=== PATIENT | female | born 1965 | race Caucasian/White ===

== ENCOUNTER 2016-05-06 08:42 | Emergency (ER) | payer BC ==
--- NOTE | 2016-05-06 12:28 | ED ORDER SUMMARY ---
..... Patient: ROCHELLE BRIGGS OrderSheet [facility] VisitID: [id number] [place] [address] 50y, F Registration Date/Time: 05/06/2016 ORDER SHEET Weight: 86.1 kg (stated) Allergies: No Known Drug Allergy GENERAL ORDERS: CBC w Diff Urgent (09:38 05/06/2016 Tomas Sharma) (Ack 9:46 LNations ER Tech1) (10:38 SBalde R.N.) CMP Urgent (09:38 05/06/2016 Tomas Sharma) (Ack 9:46 LNations ER Tech1) (10:38 SBalde R.N.) UA-Culture if indicated Urgent (09:05/06/2016 Tomas Sharma) (Ack 9:46 LNations ER Tech1) (10:38 SBalde R.N.) Urine Urgent (09:38 05/06/2016 Tomas Sharma) (Ack 9:46 LNations ER Tech1) (10:38 SBalde R.N.) MEDICATION ORDERS: Clonidine PO 0.2 mg (NOW) (09:37 05/06/2016 Tomas Sharma) (10:40 Charis R.N.) Acetaminophen PO 1,000 mg (NOW) (11:55 05/06/2016 Tomas Sharma) (12:22 Charis R.N.) IV FLUIDS: ORDER SHEET NOTES: [Electronically signed by Jasbir Camp Dr. (12:09 05/06/2016)] [Electronically signed by Tania Eng R.N. (15:54 05/06/2016)] [Electronically locked/signed by Tania Eng R.N. (15:54 05/06/2016)]
--- NOTE | 2016-05-06 12:28 | ED NURSING NOTES ---
Clinical Report - Nurses Formerly [facility] [address] [place] [address] 05/06/2016 8:44 Patient: ROCHELLE BRIGGS [facility]#: [id number] TRIAGE Triage time 09:09 May 06 2016. Acuity: LEVEL 3. Chief Complaint: HEADACHE. Alert. No acute distress. ESTELA COMA SCORE: Estela Coma Scale: 15- eyes open spontaneously (4); best verbal response- oriented x 4 (5); best motor response- obeys commands (6). --09:15 Tania Eng R.N. 09:09 05/06/16. BP: 185/82. HR: 73. RR: 18. O2 saturation: 98%. Temp: 97.8 F. --09:15 Tania Eng R.N. Weight: 86.1 kg stated. Height/Length: 61 inches Per Patient. BMI: 35.9. --09:08 Tania Eng R.N. Medications Acid Expeller Operator Oral. --09:13 Tania Eng R.N. Allergy Oral. --09:14 Tania Eng R.N. Medication/allergy information source: the patient. --09:15 Tania Eng R.N. Allergies No Known Drug Allergy. --09:13 Tania Eng R.N. History Arrived by private vehicle. Historian: patient. Accompanied by friend. Primary physician (none). ( Pt states headache for 2 weeks, taking Ibuprofen PRN for it, Checked BP randomly at a family members house and was told it was high.). This started 2 weeks. Patient was last known well (2 weeks ago). Treatment ATTACHER: Took ibuprofen. PAST MEDICAL HX: No history of diabetes mellitus or hypertension. Last normal menstrual period- just finished. Was 2 weeks of a period. Denies current . Has not received seasonal influenza immunization. SOCIAL HX: Heavy tobacco smoker- 1 pack per day. Occasional alcohol use. No drug use. No recent travel. No infectious disease exposure. No known contact with a sick individual. FALL RISK ASSESSMENT: Fall risk assessment completed. No fall risk identified. NUTRITIONAL RISK ASSESSMENT: The nutritional risk assessment revealed no deficiencies. FUNCTIONAL ASSESSMENT: Functional assessment: no impairments noted. LEARNING NEEDS ASSESSMENT: The learning needs assessment revealed no barriers. SKIN INTEGRITY ASSESSMENT: Skin integrity risk assessment completed. No skin integrity risk identified. --09:15 Tania Eng R.N. PROBLEMS: GERD. --09:14 Tania Eng R.N. ADDITIONAL SURGERIES: . Cyst removed from Ankle. Hand Sx. --09:14 Tania Eng R.N. Interventions ID band on patient. To room. --09:15 Tania Eng R.N. PHYSICAL ASSESSMENT Ambulatory to room. GENERAL / NEURO / PSYCH: Oriented X 4. Appears in no acute distress. Speech within normal limits. HEENT: Pupils equal, round and reactive to light. RESPIRATORY: Respirations not labored. CVS: Capillary refill less than 2 seconds. SKIN: Skin is warm and dry. --11:15 Tania Eng R.N. NURSING PROGRESS NOTES Patient ready for evaluation- ED physician notified. --09:15 Tania Eng R.N. 10:40 05/06/2016 Clonidine PO 0.2 mg given. Allergies verified and confirmed 5 rights. --10:40 Tania Eng R.N. 10:44 05/06/16. BP: 190/84. --10:44 Tania Eng R.N. ( Lab was called, blood drawn by Flower Shop Manager.). --11:14 Tania Eng R.N. 11:50 05/06/16. BP: 158/72. --11:50 Tania Eng R.N. ( Pt states she still has a headache.). --11:50 Tania Eng R.N. 11:50 05/06/16. Pain level now 7/10. --11:50 Tania Eng R.N. Patient waiting for evaluation and disposition. --11:51 Tania Eng R.N. 12:22 05/06/2016 Acetaminophen (APAP) PO 1000 mg given. Allergies verified and confirmed 5 rights. --12:22 Tania Eng R.N. DISPOSITION / DISCHARGE Condition at departure: stable. No learning barriers present. Discharge instructions provided and reviewed with the patient. Reviewed medication(s) side effects, precautions, dosing and course information. Prescription(s) given to the patient. Reviewed referral to family practice for followup. Patient verbalized understanding. Written instructions provided in Kazakh. The patient was discharged home and accompanied by secondary school teacher librarian. She left the Emergency Department ambulatory and via private vehicle. Teachers' Assistant driving. Medication list reviewed and validated. --12:28 Sona Ballesteros R.N. 12:23 05/06/16. BP: 155/75. HR: 80. RR: 16. O2 saturation: 98%. Pain level now 0/10. --12:28 Sona Ballesteros R.N. Departure time: 12:28. --12:28 Sona Ballesteros R.N. Locked/Released at 05/06/2016 15:54 by Tania Eng R.N.
--- NOTE | 2016-05-06 12:28 | ED NURSING NOTES ---
Clinical Report - Nurses [facility] [address] [place] [address] 05/06/2016 8:44 Patient: ROCHELLE BRIGGS [facility]#: [id number] TRIAGE Triage time 09:09 May 06 2016. Acuity: LEVEL 3. Chief Complaint: HEADACHE. Alert. No acute distress. ESTELA COMA SCORE: Estela Coma Scale: 15- eyes open spontaneously (4); best verbal response- oriented x 4 (5); best motor response- obeys commands (6). --09:15 Tania Eng R.N. 09:09 05/06/16. BP: 185/82. HR: 73. RR: 18. O2 saturation: 98%. Temp: 97.8 F. --09:15 Tania Eng R.N. Weight: 86.1 kg stated. Height/Length: 61 inches Per Patient. BMI: 35.9. --09:08 Tania Eng R.N. Medications Acid Process Controls Technician Oral. --09:13 Tania Eng R.N. Allergy Oral. --09:14 Tania Eng R.N. Medication/allergy information source: the patient. --09:15 Tania Eng R.N. Allergies No Known Drug Allergy. --09:13 Tania Eng R.N. History Arrived by private vehicle. Historian: patient. Accompanied by friend. Primary physician (none). ( Pt states headache for 2 weeks, taking Ibuprofen PRN for it, Checked BP randomly at a family members house and was told it was high.). This started 2 weeks. Patient was last known well (2 weeks ago). Treatment FINANCIAL REP: Took ibuprofen. PAST MEDICAL HX: No history of diabetes mellitus or hypertension. Last normal menstrual period- just finished. Was 2 weeks of a period. Denies current . Has not received seasonal influenza immunization. SOCIAL HX: Heavy tobacco smoker- 1 pack per day. Occasional alcohol use. No drug use. No recent travel. No infectious disease exposure. No known contact with a sick individual. FALL RISK ASSESSMENT: Fall risk assessment completed. No fall risk identified. NUTRITIONAL RISK ASSESSMENT: The nutritional risk assessment revealed no deficiencies. FUNCTIONAL ASSESSMENT: Functional assessment: no impairments noted. LEARNING NEEDS ASSESSMENT: The learning needs assessment revealed no barriers. SKIN INTEGRITY ASSESSMENT: Skin integrity risk assessment completed. No skin integrity risk identified. --09:15 Tania Eng R.N. PROBLEMS: GERD. --09:14 Tania Eng R.N. ADDITIONAL SURGERIES: . Cyst removed from Ankle. Hand Sx. --09:14 Tania Eng R.N. Interventions ID band on patient. To room. --09:15 Tania Eng R.N. PHYSICAL ASSESSMENT Ambulatory to room. GENERAL / NEURO / PSYCH: Oriented X 4. Appears in no acute distress. Speech within normal limits. HEENT: Pupils equal, round and reactive to light. RESPIRATORY: Respirations not labored. CVS: Capillary refill less than 2 seconds. SKIN: Skin is warm and dry. --11:15 Tania Eng R.N. NURSING PROGRESS NOTES Patient ready for evaluation- ED physician notified. --09:15 Tania Eng R.N. 10:40 05/06/2016 Clonidine PO 0.2 mg given. Allergies verified and confirmed 5 rights. --10:40 Tania Eng R.N. 10:44 05/06/16. BP: 190/84. --10:44 Tania Eng R.N. ( Lab was called, blood drawn by Merchandise Planner.). --11:14 Tania Eng R.N. 11:50 05/06/16. BP: 158/72. --11:50 Tania Eng R.N. ( Pt states she still has a headache.). --11:50 Tania Eng R.N. 11:50 05/06/16. Pain level now 7/10. --11:50 Tania Eng R.N. Patient waiting for evaluation and disposition. --11:51 Tania Eng R.N. 12:22 05/06/2016 Acetaminophen (APAP) PO 1000 mg given. Allergies verified and confirmed 5 rights. --12:22 Tania Eng R.N. DISPOSITION / DISCHARGE Condition at departure: stable. No learning barriers present. Discharge instructions provided and reviewed with the patient. Reviewed medication(s) side effects, precautions, dosing and course information. Prescription(s) given to the patient. Reviewed referral to family practice for followup. Patient verbalized understanding. Written instructions provided in Latvian. The patient was discharged home and accompanied by group dynamics instructor. She left the Emergency Department ambulatory and via private vehicle. Bartacker driving. Medication list reviewed and validated. --12:28 Sona Ballesteros R.N. 12:23 05/06/16. BP: 155/75. HR: 80. RR: 16. O2 saturation: 98%. Pain level now 0/10. --12:28 Sona Ballesteros R.N. Departure time: 12:28. --12:28 Sona Ballesteros R.N. Locked/Released at 05/06/2016 15:54 by Tania Eng R.N.
--- NOTE | 2016-05-06 12:28 | ED ORDER SUMMARY ---
..... Patient: ROCHELLE BRIGGS OrderSheet [facility] VisitID: [id number] [place] [address] 50y, F Registration Date/Time: 05/06/2016 ORDER SHEET Weight: 86.1 kg (stated) Allergies: No Known Drug Allergy GENERAL ORDERS: CBC w Diff Urgent (09:38 05/06/2016 Tomas Sharma) (Ack 9:46 LNations ER Tech1) (10:38 SBalde R.N.) CMP Urgent (09:38 05/06/2016 Tomas Sharma) (Ack 9:46 LNations ER Tech1) (10:38 SBalde R.N.) UA-Culture if indicated Urgent (09:05/06/2016 Tomas Sharma) (Ack 9:46 LNations ER Tech1) (10:38 SBalde R.N.) Urine Urgent (09:38 05/06/2016 Tomas Sharma) (Ack 9:46 LNations ER Tech1) (10:38 SBalde R.N.) MEDICATION ORDERS: Clonidine PO 0.2 mg (NOW) (09:37 05/06/2016 Tomas Sharma) (10:40 Charis R.N.) Acetaminophen PO 1,000 mg (NOW) (11:55 05/06/2016 Tomas Sharma) (12:22 Charis R.N.) IV FLUIDS: ORDER SHEET NOTES: [Electronically signed by Jasbir Camp Dr. (12:09 05/06/2016)] [Electronically signed by Tania Eng R.N. (15:54 05/06/2016)] [Electronically locked/signed by Tania Eng R.N. (15:54 05/06/2016)]
--- NOTE | 2016-05-06 12:28 | ED CLINICAL REPORT ---
Clinical Report - Physicians/Mid Levels [facility] [address] [place] [address] 05/06/2016 8:44 Patient: ROCHELLE BRIGGS Time Seen: 09:05; initial patient contact. Arrived- By private vehicle. Historian- patient. HISTORY OF PRESENT ILLNESS Chief Complaint: BLOOD PRESSURE ELEVATED. Checked by patient at home. This started about 1 week ago and is still present. At its maximum, severity described as moderate. When seen in the E.D., severity described as moderate. Modifying factors. Not worsened by anything. Not relieved by anything. The patient has had a headache. No visual disturbance or fatigue. Similar symptoms previously: None. Recent medical care: Not recently seen/assessed. REVIEW OF SYSTEMS No fever, difficulty breathing, chest pain, nausea or vomiting. No difficulty with urination, blackouts or double vision. She has had a headache. No difficulty with ambulation. All systems otherwise negative, except as recorded above. PAST HISTORY GERD. SURGERIES: . Cyst removed from Ankle. Hand Sx. Medications: Allergy Oral. Acid Client Customer Manager Oral. Allergies: No Known Drug Allergy. SOCIAL HISTORY Current every day smoker. ADDITIONAL NOTES The nursing notes have been reviewed with agreement regarding the chief complaint, PMH and patient medications and allergies. PHYSICAL EXAM Vital Signs: 05/06/2016 09:09 BP: 185/82. HR: 73. RR: 18. O2 saturation: 98%. Temp: 97.8 F. Have been reviewed. Hypertensive. Heart rate normal. Respiratory rate normal. Temperature normal. Oxygen saturation normal. Appearance: Alert. No acute distress. Eyes: Pupils equal, round and reactive to light. Eyes normal inspection. ENT: Pharynx normal. CVS: Normal heart rate and rhythm. Heart sounds normal. Respiratory: No respiratory distress. Breath sounds normal. Skin: Skin warm and dry. Normal skin color. No rash. Extremities: No calf tenderness. No lower extremity edema. Neuro: Oriented X 3. LABS, X-RAYS, AND EKG Laboratory Tests: UA-Culture if indicated: (WILIAM: 05/06/2016 09:30) ( MsgRcvd 05/06/2016 09:53) Final results Test Result Flag Units (Reference) URINE COLOR YELLOW URINE APPEARANCE CLEAR URINE GLUCOSE NEGATIVE (NEGATIVE) URINE BILIRUBIN NEGATIVE (NEGATIVE) URINE KETONE NEGATIVE (NEGATIVE) URINE SPECIFIC GRAVITY <= 1.005 L (1.010-1.030) URINE PH 6.5 (5.0-8.0) URINE PROTEIN NEGATIVE (NEGATIVE) URINE UROBILINOGEN 0.2 EU/dL (0.2-1.0) URINE NITRITE NEGATIVE (NEGATIVE) URINE BLOOD NEGATIVE (NEGATIVE) URINE LEUK ESTERASE TRACE (NEGATIVE) URINE RBC 0-1 rbc/hpf (0-1) URINE WBC 0-1 wbc/hpf (0-1) URINE EPITHELIAL CELLS 0-1 EPI/hpf (0-5) URINE BACTERIA TRACE (<1+) (NONE SEEN) URINE COMMENT CULTURE INDICATED URINE CULTURES ARE SET-UP BASED ON THE FOLLOWING CRITERIA:POSITIVE NITRITEPOSITIVE LEUKOCYTE ESTERASEGREATER THAN 10 WHITE BLOOD CELLSMODERATE (2+) OR GREATER BACTERIA Urine: (WILIAM: 05/06/2016 09:30) ( [facility] 05/06/2016 09:47) Final results Test Result Flag Units (Reference) URINE NEGATIVE CBC w Diff: (WILIAM: 05/06/2016 11:05) ( [facility] 05/06/2016 11:50) Final results Test Result Flag Units (Reference) WHITE BLOOD COUNT 6.9 K/uL (4.5-11.5) RED BLOOD COUNT 3.91 L M/uL (4.00-5.20) HEMOGLOBIN 8.0 L gm/dL (12.0-16.0) HEMATOCRIT 26.5 L % (36.0-46.0) MEAN CELL VOLUME 68 L fL (80-100) MEAN CORPUSCULAR HGB 20 L pg (26-34) MEAN CORPUSCULAR HGB CONC 30 L g/dL (31-37) RED CELL DISTRIBUTION WIDTH 19.6 H % (11.6-14.8) PLATELET COUNT 553 H K/uL (150-400) POLY % 75 % (50-75) BAND % 0 % (0-8) LYMPH 18 L % (25-40) MONO 4 % (3-14) EOSINOPHIL % 2 % (0-4) BASOPHIL % 1 % (0-2) METAMYELOCYTE % 0 % (0-1) MYELOCYTE 0 % (0-1) OTHER CELL TYPE 0 POLYCHROMASIA 1+ HYPOCHROMIA 2+ POIKILOCYTOSIS 2+ ANISOCYTOSIS 2+ MICROCYTOSIS 1+ MACROCYTOSIS 1+ OVALOCYTES 1+ STOMATOCYTE 1+ CMP: (WILIAM: 05/06/2016 11:05) ( MsgRcvd 05/06/2016 11:29) Final results Test Result Flag Units (Reference) GLUCOSE 91 mg/dL (70-110) BUN 8 mg/dL (7-18) CREATININE 1.0 mg/dL (0.6-1.3) Estimated GFR >60 mL/min Estimated GFR- >60 mL/min Note: Persistent reduction over 3 months in eGFR<60 mL/min/1.73 m2 defines CKD. Patients with eGFR values>=60 mL/min/1.73 m2 may also have CKD if evidence ofpersistent proteinuria. Additional information may be foundat www.kidney.org. SODIUM 138 mmol/L (136-145) POTASSIUM 3.9 mmol/L (3.5-5.1) CHLORIDE 102 mmol/L (98-107) CARBON DIOXIDE 25 mmol/L (21-32) CALCIUM 8.8 mg/dL (8.5-10.1) TOTAL PROTEIN 7.1 g/dL (6.4-8.2) ALBUMIN 3.6 g/dL (3.3-5.0) BILIRUBIN, TOTAL 0.4 mg/dL (0.0-1.0) ALKALINE PHOSPHATASE 121 H U/L (46-116) AST (SGOT) 17 U/L (15-37) ALT (SGPT) 13 U/L (12-78) . PROGRESS AND PROCEDURES Course of Care: 05/06/2016 11:50 BP: 158/72. Vital Signs: have been reviewed. Hypertensive. CLINICAL IMPRESSION Essential hypertension. Moderate chronic iron deficiency anemia from chronic blood loss. Primary (essential) thrombocytosis. Acute urinary tract infection with cystitis. INSTRUCTIONS Return to work today. Avoid NSAIDS. Examples of NSAIDS include aspirin, ibuprofen (Advil) and naproxen (Aleve). Avoid salty foods. Your Current Medications: CONTINUE TAKING THE FOLLOWING MEDICATIONS: Acid Client Customer Manager Oral. Allergy Oral. Prescription Medications: Lisinopril 10 mg: take 1 orally every 24 hours. Dispense fifteen (15). No refills. Cipro 500 mg: take 1 tab orally every 12 hours for 3 days. No refills. Substitution is permissible. Follow-up: Screening today revealed the patient's blood pressure to be in the hypertensive range. The patient should follow up with a primary care provider for blood pressure management. Follow-up with: Nusrat Del Valle MD, [facility], , [facility], [address] [place] [address] Follow up in two days. Call for an appointment. (Electronically signed by Jasbir Camp Dr. 05/06/2016 12:09)
--- NOTE | 2016-05-06 15:55 | ED MAR SUMMARY ---
..... Medication Administration Record [facility] [address] [place] [address] Patient: ROCHELLE BRIGGS Visit ID: [id number] 50y, F Weight: 86.1 kg Height/Length: 61 in BMI: 35.9 ALLERGIES: No Known Drug Allergy Given 10:40 05/06/2016 Tania Eng RLisaNLisa Medication Administered: CLONIDINE [PO], Dose: 0.2 mg PO. Medication Ordered: Clonidine PO 0.2 mg (NOW). Given 12:22 05/06/2016 Tania Eng RLisaN. Medication Administered: ACETAMINOPHEN [PO] (APAP), Dose: 1000 mg PO. Medication Ordered: Acetaminophen PO 1,000 mg (NOW).
--- NOTE | 2016-05-06 15:55 | ED MAR SUMMARY ---
..... Medication Administration Record [facility] [address] [place] [address] Patient: ROCHELLE BRIGGS Visit ID: [id number] 50y, F Weight: 86.1 kg Height/Length: 61 in BMI: 35.9 ALLERGIES: No Known Drug Allergy Given 10:40 05/06/2016 Tania Eng RLisaNLisa Medication Administered: CLONIDINE [PO], Dose: 0.2 mg PO. Medication Ordered: Clonidine PO 0.2 mg (NOW). Given 12:22 05/06/2016 Tania Eng RLisaN. Medication Administered: ACETAMINOPHEN [PO] (APAP), Dose: 1000 mg PO. Medication Ordered: Acetaminophen PO 1,000 mg (NOW).
--- NOTE | 2016-05-06 15:55 | ED DISCHARGE INSTRUCTIONS ---
Patient: ROCHELLE BRIGGS General Instructions [facility] VisitID: [id number] [place] [address] 50y, F Registration Date/Time: 05/06/2016 Essential hypertension. Moderate chronic iron deficiency anemia from chronic blood loss. Primary (essential) thrombocytosis. Acute urinary tract infection with cystitis. INSTRUCTIONS Return to work today. Avoid NSAIDS. Examples of NSAIDS include aspirin, ibuprofen (Advil) and naproxen (Aleve). Avoid salty foods. Your Current Medications: CONTINUE TAKING THE FOLLOWING MEDICATIONS: Acid Nurse Emergency Room Oral. Allergy Oral. Prescription Medications: Lisinopril 10 mg: take 1 orally every 24 hours. Dispense fifteen (15). No refills. Cipro 500 mg: take 1 tab orally every 12 hours for 3 days. No refills. Substitution is permissible. Follow-up: Screening today revealed the patient's blood pressure to be in the hypertensive range. The patient should follow up with a primary care provider for blood pressure management. Follow-up with: Nusrat Del Valle MD, [facility], , [facility], [address] [place] [address] Follow up in two days. Call for an appointment. ADDITIONAL INFORMATION Anemia, Iron Deficiency [Adult] Anemia is a condition where the size or number of red blood cells in the body is reduced. Iron is needed in the diet to make red cells. The red blood cells carry oxygen to all parts of the body. Anemia limits the delivery of oxygen to where it is needed. This causes a feeling of being tired and run down. When anemia becomes severe, the skin becomes pale and there is shortness of breath with exertion, headaches, dizziness, drowsiness and fatigue. The cause of your anemia is lack of iron in your body. This may occur due to blood loss (for example, heavy menstrual periods or bleeding from the stomach or intestines) or a poor diet (not eating enough iron-containing foods), inability to absorb iron from your diet, or . If the blood count is low enough, an IRON SUPPLEMENT will be prescribed. It usually takes about 2-3 months of treatment with iron supplements to correct an anemia. Severe cases of anemia requires a blood transfusion to rapidly correct symptoms and deliver more oxygen to the cells. Home Care: 1) Increase the iron stores in your body by eating foods high in iron content. This is a natural way of building your blood cells back up again. Beef, liver, spinach and other dark green leafy vegetables, whole grain products, beans and nuts are all natural sources of iron. 2) If you are having symptoms of anemia listed above: -- Do not overexert yourself. -- Talk to your doctor before flying on an airplane or traveling to high altitudes. Follow Up with your doctor in 2 months for a repeat red blood cell count, or as recommended by our staff, to be sure that the anemia has been corrected. Get Prompt Medical Attention if any of the following occur or worsen: -- Shortness of breath or chest pain -- Dizziness or fainting -- Vomiting blood or passing red or black-colored stool Bladder Infection,Female (Adult) A bladder infection ("cystitis" or "UTI") usually causes a constant urge to urinate and a burning when passing urine. Urine may be cloudy, smelly or dark. There may be pain in the lower abdomen. A bladder infection occurs when bacteria from the vaginal area enter the bladder opening (urethra). This can occur from sexual intercourse, wearing tight clothing, dehydration and other factors. Home Care: Drink lots of fluids (at least 6-8 glasses a day, unless you must restrict fluids for other medical reasons). This will force the medicine into your urinary system and flush the bacteria out of your body. Avoid sexual intercourse until your symptoms are gone. Avoid caffeine, alcohol and spicy foods. These can irritate the bladder. A bladder infection is treated with antibiotics. You may also be given Pyridium (generic = phenazopyridine) to reduce the burning sensation. This medicine will cause your urine to become a bright orange color. The orange urine may stain clothing. You may wear a pad or panty-liner to protect clothing. Preventing Future Infections: Always wipe from front to back after a bowel movement. Keep the genital area clean and dry. Drink plenty of fluids each day to avoid dehydration. Both sexual partners should wash before intercourse. Urinate right after intercourse to flush out the bladder. Wear cotton underwear and cotton-lined panty hose; avoid tight-fitting pants. If you are on control pills and are having frequent bladder infections, discuss with your doctor. Follow Up: Return to this facility or see your doctor if ALL symptoms are not gone after three days of treatment. Get Prompt Medical Attention if any of the following occur: Fever of 100.4F (38C) or higher, or as directed by your healthcare provider No improvement by the third day of treatment Increasing back or abdominal pain Repeated vomiting; unable to keep medicine down Weakness, dizziness or fainting Vaginal discharge Pain, redness or swelling in the labia (outer vaginal area) High Blood Pressure -- New (Begin Tx) Your blood pressure was high enough today to start treatment with medicines. The cause of hypertension is unknown in most cases, but can be controlled with lifestyle changes and/or medicines. Hypertension may cause headache, dizziness, blurred vision, rushing sound in your ears, chest pain or shortness of breath. Sometimes it causes no symptoms at all. However, untreated hypertension increases the risk of heart attack, also known as acute myocardial infarction, or AMI, and stroke. It is a serious health risk and should not be ignored. A normal blood pressure is 120/80 or less. The first (top) number is the "systolic" pressure. The second (bottom) number is the "diastolic" pressure. Hypertension exists when either the top number is 140 or higher, OR the bottom number is 90 or higher on repeated measurements. Home Care: All patients with hypertension should do the following to lower their pressure. If you are on medicines, then these methods may reduce or eliminate your need for medicine in the future. Begin a weight loss program if you are overweight. Reduce your salt intake. Avoid high salt foods (olives, pickles, smoked meats, salted potato chips, etc.). Do not add salt to your food at the table. Use only small amounts of salt when cooking. Begin an exercise program. Discuss with your doctor what type of exercise program would be best for you. It doesn't have to be difficult. Even brisk walking for 20 minutes three times a week is a good form of exercise. Avoid medicines which contain heart stimulants. This includes many cold and sinus decongestant pills and sprays as well as diet pills. Check the warnings about hypertension on the label. Stimulants such as amphetamine or cocaine could be lethal for someone with hypertension. Never take these. Limit your caffeine intake or switch to caffeine-free products. Stop smoking. If you are a long-time smoker, this can be hard. Enroll in a stop-smoking program to improve your chance of success. Talk to your physician about ways to improve your chance of success. Learning how to handle stress better is an important part of any program to lower blood pressure. Learn about relaxation methods such as meditation, yoga, or biofeedback. If medicines were prescribed, take them exactly as directed. Missing doses may cause your blood pressure to get out of control. Consider buying an automatic blood pressure machine (available at many pharmacies). Use this to monitor your blood pressure and report to your doctor. Follow Up: Because a new blood pressure medicine was started today, it is important that you have your blood pressure rechecked to be sure you are responding well and that there are no serious side effects. Unless told otherwise, follow-up with your doctor or this facility within the next THREE DAYS. Get Prompt Medical Attention if any of the following occur: Chest pain or shortness of breath Severe headache Throbbing or rushing sound in the ears Nosebleed Sudden severe abdominal pain Extreme drowsiness, confusion or fainting Dizziness or vertigo (dizziness with spinning sensation) Weakness of an arm or leg or one side of the face Difficulty with speech or vision Low-Salt Diet (2 Grams/Day) This diet eliminates foods that are high in salt and restricts the amount of salt that you cook with. It is most often used for patients with high blood pressure, edema (fluid retention), kidney, liver, and heart disease. Table salt contains the mineral sodium. The body needs sodium to work normally. But too much sodium can make your health problems worse. Your healthcare provider is recommending a low-salt (also called low-sodium) diet for you. Your total daily allowance of salt (sodium) is 2 grams. This equals 2,000 milligrams (mg). It is less than 1 teaspoon of table salt. This means you can have only about 700 mg of sodium at each meal. When you cook, limit the salt you use. And if you can avoid using salt, even better. Do not add salt at the table. So, throw away the saltshaker! When shopping, read the package labels. Salt is often called sodium on the label. Choose foods that are Salt-Free, Low Salt, or Very Low Salt. Note that foods with Reduced Salt may notlower your salt intake enough. Beverages OK: Tea, coffee, carbonated beverages, juices AVOID: Flavored international coffees, electrolyte replacement drinks, sports beverages Bread & Cereals OK: All regular bread, rolls, cereals, cakes; low-salt crackers, matzoh crackers AVOID: Salted crackers, pretzels, popcorn; belizean toast, pancakes, muffins Fruits & Desserts OK: Ice cream, frozen yogurt, juice bars, gelatin (Jell-O), cookies and pies, sugar, honey, jelly, hard candy AVOID: Most pies, cakes and cookies prepared or processed with salt, instant pudding Meats OK: All fresh meat, fish, poultry, low-salt tuna AVOID: Smoked, pickled, brine-cured, or salted meats or fish. Thisincludes [place], chipped beef, corned beef, hot dogs, luncheon meats, ham, kosher meats, salt pork, sausage, canned tuna, salted codfish, smokedsalmon, howell, sardines, or anchovies. Dairy OK: Milk, chocolate milk, hot chocolate mix; eggs, Low Salt cheeses, yogurt, egg substitute AVOID: Processed cheese, cheese spreads, Roquefort, Camembert, and cottage cheese, buttermilk, instant breakfast drink Beans, Potatoes & Pasta OK: Dry beans, split peas, lentils, potatoes, rice, macaroni, noodles, spaghetti without added salt AVOID: Potato chips, tortilla chips, and similar products Soups OK: Low-salt soups and broths made with allowed foods AVOID: Bouillon cubes, soups with smoked or salted meats, regular soup and broth Vegetables OK: Most are okay; low-salt tomato and vegetable juices AVOID: Sauerkraut and other brine-soaked vegetables, pickles and other pickled vegetables, tomato juice, olives Seasoning & Spices OK: Most seasonings are okay. Good substitutes for salt include: fresh herb blends, Tabasco, lemon, garlic, magallon, vinegar, dry mustard, parsley, cilantro, horseradish, tomato paste, regular margarine, mayonnaise, butter, cream cheese, vegetable oil, cream, low-salt salad dressing and gravy AVOID: Regular ketchup, relishes, pickles, soy sauce, teriyaki sauce, Worcestershire sauce, BBQ sauce, tartar sauce, meat tenderizer, chili sauce, regular gravy, regular salad dressing Lisinopril Oral tablet What is this medicine? LISINOPRIL (lyse IN oh pril) is an KAREN inhibitor. This medicine is used to treat high blood pressure and heart failure. It is also used to protect the heart immediately after a heart attack. How should I use this medicine? Take this medicine by mouth with a glass of water. Follow the directions on your prescription label. You may take this medicine with or without food. Take your medicine at regular intervals. Do not stop taking this medicine except on the advice of your doctor or health primary health care nurse. Talk to your building code administrator regarding the use of this medicine in children. Special care may be needed. While this drug may be prescribed for children as young as 6 years of age for selected conditions, precautions do apply. What side effects may I notice from receiving this medicine? Side effects that you should report to your doctor or health primary health care nurse as soon as possible: abdominal pain with or without nausea or vomiting allergic reactions like skin rash or hives, swelling of the hands, feet, face, lips, throat, or tongue dark urine difficulty breathing dizzy, lightheaded or fainting spell fever or sore throat irregular heart beat, chest pain pain or difficulty passing urine redness, blistering, peeling or loosening of the skin, including inside the mouth unusually weak yellowing of the eyes or skin Side effects that usually do not require medical attention (report to your doctor or health primary health care nurse if they continue or are bothersome): change in taste cough decreased sexual function or desire headache sun sensitivity tiredness What may interact with this medicine? diuretics lithium NSAIDs, medicines for pain and inflammation, like ibuprofen or naproxen [id number] herbal supplements like hawthorn potassium salts or potassium supplements salt substitutes What if I miss a dose? If you miss a dose, take it as soon as you can. If it is almost time for your next dose, take only that dose. Do not take double or extra doses. Where should I keep my medicine? Keep out of the reach of children. Store at room temperature between 15 and 30 degrees C (59 and 86 degrees F). Protect from moisture. Keep container tightly closed. Throw away any unused medicine after the expiration date. What should I tell my health care provider before I take this medicine? They need to know if you have any of these conditions: diabetes heart or blood vessel disease immune system disease like lupus or scleroderma kidney disease low blood pressure previous swelling of the tongue, face, or lips with difficulty breathing, difficulty swallowing, hoarseness, or tightening of the throat an unusual or allergic reaction to lisinopril, other KAREN inhibitors, insect venom, foods, dyes, or preservatives or trying to get breast-feeding What should I watch for while using this medicine? Visit your doctor or health primary health care nurse for regular check ups. Check your blood pressure as directed. Ask your doctor what your blood pressure should be, and when you should contact him or her. Call your doctor or health primary health care nurse if you notice an irregular or fast heart beat. Women should inform their doctor if they wish to become or think they might be . There is a potential for serious side effects to an unborn child. Talk to your health primary health care nurse or pharmacist for more information. Check with your doctor or health primary health care nurse if you get an attack of severe diarrhea, nausea and vomiting, or if you sweat a lot. The loss of too much body fluid can make it dangerous for you to take this medicine. You may get drowsy or dizzy. Do not drive, use machinery, or do anything that needs mental alertness until you know how this drug affects you. Do not stand or sit up quickly, especially if you are an older patient. This reduces the risk of dizzy or fainting spells. Alcohol can make you more drowsy and dizzy. Avoid alcoholic drinks. Avoid salt substitutes unless you are told otherwise by your doctor or health primary health care nurse. Do not treat yourself for coughs, colds, or pain while you are taking this medicine without asking your doctor or health primary health care nurse for advice. Some ingredients may increase your blood pressure. Ciprofloxacin Hydrochloride Oral tablet What is this medicine? CIPROFLOXACIN (sip pola FLOX a sin) is a quinolone antibiotic. It is used to treat certain kinds of bacterial infections. It will not work for colds, flu, or other viral infections. How should I use this medicine? Take this medicine by mouth with a glass of water. Follow the directions on the prescription label. Take your medicine at regular intervals. Do not take your medicine more often than directed. Take all of your medicine as directed even if you think your are better. Do not skip doses or stop your medicine early. You can take this medicine with food or on an empty stomach. It can be taken with a meal that contains dairy or calcium, but do not take it alone with a dairy product, like milk or yogurt or calcium-fortified juice. A special MedGuide will be given to you by the pharmacist with each prescription and refill. Be sure to read this information carefully each time. Talk to your building code administrator regarding the use of this medicine in children. Special care may be needed. What side effects may I notice from receiving this medicine? Side effects that you should report to your doctor or health primary health care nurse as soon as possible: - allergic reactions like skin rash, itching or hives, swelling of the face, lips, or tongue - breathing problems - confusion, nightmares or hallucinations - feeling faint or lightheaded, falls - irregular heartbeat - joint, muscle or tendon pain or swelling - pain or trouble passing urine -persistent headache with or without blurred vision - redness, blistering, peeling or loosening of the skin, including inside the mouth - seizure - unusual pain, numbness, tingling, or weakness Side effects that usually do not require medical attention (report to your doctor or health primary health care nurse if they continue or are bothersome): - diarrhea - nausea or stomach upset - white patches or sores in the mouth What may interact with this medicine? Do not take this medicine with any of the following medications: cisapride droperidol terfenadine tizanidine This medicine may also interact with the following medications: antacids caffeine cyclosporin didanosine (ddI) buffered tablets or powder medicines for diabetes medicines for inflammation like ibuprofen, naproxen methotrexate multivitamins omeprazole phenytoin probenecid sucralfate theophylline warfarin What if I miss a dose? If you miss a dose, take it as soon as you can. If it is almost time for your next dose, take only that dose. Do not take double or extra doses. Where should I keep my medicine? Keep out of the reach of children. Store at room temperature below 30 degrees C (86 degrees F). Keep container tightly closed. Throw away any unused medicine after the expiration date. What should I tell my health care provider before I take this medicine? They need to know if you have any of these conditions: -bone problems -cerebral disease -joint problems -irregular heartbeat -kidney disease -liver disease -myasthenia gravis -seizure disorder -tendon problems -an unusual or allergic reaction to ciprofloxacin, other antibiotics or medicines, foods, dyes, or preservatives - or trying to get -breast-feeding What should I watch for while using this medicine? Tell your doctor or health primary health care nurse if your symptoms do not improve. Do not treat diarrhea with over the counter products. Contact your doctor if you have diarrhea that lasts more than 2 days or if it is severe and watery. You may get drowsy or dizzy. Do not drive, use machinery, or do anything that needs mental alertness until you know how this medicine affects you. Do not stand or sit up quickly, especially if you are an older patient. This reduces the risk of dizzy or fainting spells. This medicine can make you more sensitive to the sun. Keep out of the sun. If you cannot avoid being in the sun, wear protective clothing and use sunscreen. Do not use sun lamps or tanning beds/booths. Avoid antacids, aluminum, calcium, iron, magnesium, and zinc products for 6 hours before and 2 hours after taking a dose of this medicine. You have been given the following additional information: Anemia, Iron Deficiency (Adult) Bladder Infection, Female (Adult) Hypertension, New (Begin Treatment) Diet, Low Salt (2Gm) Lisinopril Oral tablet Ciprofloxacin Hydrochloride Oral tablet Return to work today. (Electronically signed by Jasbir Camp Dr. 05/06/2016 12:09)
--- NOTE | 2016-05-06 15:55 | ED MED RECONCILIATION SUMMARY ---
Patient: ROCHELLE BRIGGS Medication Reconciliation Report [facility] VisitID: [id number] [address] [place] [address] 50y, F Registration Date/Time: 05/06/2016 Weight: 86.1 kg Height/Length: 61 in. BMI: 35.9 ALLERGIES: No Known Drug Allergy The patient's Home Medications are listed below: CONTINUE TAKING THE FOLLOWING MEDICATIONS: Acid Water Restoration Technician Oral Allergy Oral The source(s) of the original Home Medication information: patient The following Medications were given to the patient in the Emergency Department: Clonidine [PO] PO 0.2 mg, administered: 05/06/2016 10:40:00 AM Acetaminophen [PO] PO 1000 mg, administered: 05/06/2016 12:22:00 PM The following Medications were prescribed to the patient: Lisinopril 10 mg: take 1 orally every 24 hours. Dispense fifteen (15). No refills. -- Jasbir Camp Dr. Cipro 500 mg: take 1 tab orally every 12 hours for 3 days. No refills. Substitution is permissible. -- Jasbir Camp Dr.
--- NOTE | 2016-05-06 15:55 | ED MED RECONCILIATION SUMMARY ---
Patient: ROCHELLE BRIGGS Medication Reconciliation Report [facility] VisitID: [id number] [address] [place] [address] 50y, F Registration Date/Time: 05/06/2016 Weight: 86.1 kg Height/Length: 61 in. BMI: 35.9 ALLERGIES: No Known Drug Allergy The patient's Home Medications are listed below: CONTINUE TAKING THE FOLLOWING MEDICATIONS: Acid Acid Leveler Oral Allergy Oral The source(s) of the original Home Medication information: patient The following Medications were given to the patient in the Emergency Department: Clonidine [PO] PO 0.2 mg, administered: 05/06/2016 10:40:00 AM Acetaminophen [PO] PO 1000 mg, administered: 05/06/2016 12:22:00 PM The following Medications were prescribed to the patient: Lisinopril 10 mg: take 1 orally every 24 hours. Dispense fifteen (15). No refills. -- Jasbir Camp Dr. Cipro 500 mg: take 1 tab orally every 12 hours for 3 days. No refills. Substitution is permissible. -- Jasbir Camp Dr.
== END 2016-05-06 12:28 | disposition home or self-care (01) ==
LOC: ED SRH 08:42
DX: I10 Essential (primary) hypertension (principal); D50.0 Iron deficiency anemia secondary to blood loss (chronic); D47.3 Essential (hemorrhagic) thrombocythemia; N30.00 Acute cystitis without hematuria; K21.9 Gastro-esophageal reflux disease without esophagitis; F17.200 Nicotine dependence, unspecified, uncomplicated
CPT/HCPCS: 90004; 90074; 90100; 90469; 91643; 93070; 95059

== ENCOUNTER 2016-05-19 13:46 | Outpatient (CLI) | payer BC ==
--- NOTE | 2016-05-19 16:32 | DIAGNOSTIC IMAGING REPORT ---
PROCEDURE: US COMPLETE PELVIC W/TRANSVAG INDICATION: Abnormal uterine bleeding TECHNIQUE: Transabdominal and endovaginal otto scale and color Doppler sonographic images of the female pelvis were obtained. COMPARISON: None. FINDINGS: TRANSABDOMINAL SCANS: The uterus is vertically oriented, globular in shape and measures about 10.5 cm in length. The posterior myometrium is heterogeneously hypoechoic. There is a dominant cystic structure in the right adnexa with through transmission, without discernible solid elements. The left ovary appears somewhat heterogeneous with a few small cystic components. The visible portion of the urinary bladder is normal. No significant free pelvic fluid. TRANSVAGINAL SCANS: The uterus is vertically oriented in position and measures approximately 7.5 x 6.6 x 6.9 cm. No dominant mass. The endometrium is difficult to define. The endometrial stripe measures approximately 17 mm. Normal vascularity. The right ovary measures 5.9 x 4.6 x 4.9 cm and contains a dominant cyst measuring 5.1 cm. No significant solid components or suspicious vascular flow. The left ovary measures 6.3 x 3.7 x 3.0 cm and contains a 2.6 cm follicle. No suspicious solid adnexal masses or free fluid. IMPRESSION: 1. Globular, slightly enlarged, vertically oriented uterus with an indistinct endometrium. If there is clinical concern for adenomyosis, MRI of the pelvis would be diagnostic. 2. 5.1 cm simple appearing right ovarian cyst. Follow-up ultrasound in 6-8 weeks (two to three menstrual cycles to confirm resolution) is recommended.
== END 2016-05-19 23:00 ==
LOC: US SRH 13:46
DX: N83.201 Unspecified ovarian cyst, right side (principal)

== ENCOUNTER 2016-06-10 13:32 | Outpatient (CLI) | payer BC | END 2016-06-10 23:00 | LOC: LAB SRH 13:32 | DX: I10 Essential (primary) hypertension (principal); D64.9 Anemia, unspecified; N93.9 Abnormal uterine and vaginal bleeding, unspecified | CPT/HCPCS: 90074; 90100; 90616; 91286; 92690; 92720; 95059 ==

== ENCOUNTER 2016-06-12 12:32 | Outpatient (CLI) | payer BC | END 2016-06-12 23:00 | LOC: LAB SRH 12:32 | DX: R07.9 Chest pain, unspecified (principal); R89.9 Unspecified abnormal finding in specimens from other organs, systems and tissues | CPT/HCPCS: 90074; 90100; 90616; 91282; 92720; 93140; 95059 ==

== ENCOUNTER 2016-08-15 14:39 | Outpatient (CLI) | payer BC ==
--- NOTE | 2016-08-15 17:00 | DIAGNOSTIC IMAGING REPORT ---
PROCEDURE: US COMPLETE PELVIC W/TRANSVAG INDICATION: AUB,OVARIAN CYST TECHNIQUE: Transabdominal and endovaginal otto scale and color Doppler sonographic images of the female pelvis were obtained. COMPARISON: 05/19/2016 FINDINGS: TRANSABDOMINAL SCANS: The uterus is vertically oriented. The uterine fundus is globular in shape. The right ovary was seen only transabdominally and contains a large cyst measuring about 5.1 cm. The ovary itself measures approximately 7.5 cm in greatest diameter. The left ovary appears grossly normal. Incidental note is made of moderate left hydronephrosis and hydroureter. Ureter is dilated measuring up to 12 mm. The kidneys were not previously imaged. TRANSVAGINAL SCANS: Transvaginal imaging was limited secondary to patient discomfort. The uterus is vertically oriented and measures approximately 10.0 x 5.4 x 6.1 cm. The endometrium is ill-defined, potentially secondary to uterine position. No obvious myometrial mass. Similar, mildly increased vascularity compared to the prior study. The left ovary measures about 4.1 x 3.4 x 3.8 cm and has normal arterial and venous flow. No free fluid. IMPRESSION: 1. Persistent right adnexal cystic structure, similar size compared to the prior study. If endometriosis is a concern, MR of the pelvis is recommended. 2. Ill-defined and mildly hypervascular endometrium. Correlate clinically. 3. Moderate left hydronephrosis and hydroureter. CT scan of the abdomen and pelvis without contrast to assess for urinary obstruction is recommended. 4. Findings discussed with Dr. Del Valle.
== END 2016-08-15 23:00 ==
LOC: US SRH 14:39
DX: N83.209 Unspecified ovarian cyst, unspecified side (principal); N93.9 Abnormal uterine and vaginal bleeding, unspecified; R93.8 Abnormal findings on diagnostic imaging of other specified body structures

== ENCOUNTER 2016-08-18 13:22 | Outpatient (CLI) | payer BC ==
--- NOTE | 2016-08-18 15:37 | DIAGNOSTIC IMAGING REPORT ---
PROCEDURE: CT ABDOMEN/PELVIS W/O CONTRAST INDICATION: HYDRONEPHROSIS TECHNIQUE: Noncontrast axial images were obtained of the entire abdomen and pelvis with sagittal and coronal reformations. COMPARISON: Pelvic ultrasound 08/15/2016. FINDINGS: ABDOMEN: Moderate hydronephrosis and dilation of the left ureter except of the distal 2 cm which are not well visualized. No evidence of a distal calculus and this may be due to a stricture while mass is not completely excluded. There is mild left renal cortical atrophy indicative of longstanding obstructive uropathy. Normal right kidney and ureter. Lung base are clear. Heart size is normal. Cholecystectomy. Liver, pancreas, spleen and adrenal glands are normal. Mild atherosclerosis. Several periaortic lymph nodes measuring up to 2 cm. Nonspecific bowel gas pattern. PELVIS: There is a 5.1 cm right ovarian cyst. There is a 1.7 cm left adnexal radiodense structures suggestive of a hemorrhagic cyst. Normal appendix. No inflammatory changes or free fluid. Bilateral pelvic adenopathy, largest left common iliac lymph node 2.1 cm short axis. No suspicious osseous lesions. IMPRESSION: 1. Moderate left hydronephrosis and dilation of the ureter except for the last 2 cm which are not well visualized. There is secondary left renal atrophy indicative of longstanding obstructive uropathy. Consider stricture or possible mass. Recommend CT with IV contrast and urology consultation 2. Retroperitoneal and pelvic adenopathy. Consider lymphoma versus reactive lymph nodes 3. Cholecystectomy 4. Stable 5.1 cm right ovarian cyst 5. 1.7 cm hemorrhagic left ovarian cyst 6. Results discussed with Dr. Del Valle All CT scans at this facility use dose modulation, iterative reconstruction, and/or weight-based dosing when appropriate to reduce radiation dose to as low as reasonably achievable.
== END 2016-08-18 23:00 ==
LOC: CT SRH 13:22
DX: N13.30 Unspecified hydronephrosis (principal); R59.1 Generalized enlarged lymph nodes; N26.1 Atrophy of kidney (terminal)

== ENCOUNTER 2016-08-20 14:10 | Outpatient (CLI) | payer BC ==
--- NOTE | 2016-08-20 16:01 | DIAGNOSTIC IMAGING REPORT ---
PROCEDURE: CT IVP CLINICAL INDICATION: HYDRONEPHROSIS,F/U CT MASS TECHNIQUE: 125 ml of Isovue 300 was injected intravenously, and axial images were obtained of the kidneys in the nephrographic phase, and subsequently through the entire abdomen and pelvis in the excretory phase. Axial CT images through the pelvis in the delayed phase were obtained. Sagittal and coronal reformations were created. COMPARISON: Noncontrast and 08/18/2016 and ultrasound of the pelvis 08/15/2016 and 05/19/2016 FINDINGS: ABDOMEN: There is significant left hydronephrosis, left cortical thinning, and decreased left renal parenchymal enhancement compared to the contralateral side. No detectable excretion of contrast from the left kidney. Severe left hydroureter. There is bulky left retroperitoneal adenopathy beginning just below the level of the left renal vein extending to the aortic bifurcation. Shoddy right retroperitoneal adenopathy. No parenchymal renal lesions. Ill-defined sub-centimeter hypodensity in the posterior right lower lobe of the liver (series 3 image 12). The gallbladder surgically absent. The lung bases, adrenal glands, spleen, pancreas, stomach, upper bowel loops, and mesentery appear normal. PELVIS: The left ureter tapers to an abrupt point at the level of the left cervix. The left cervical margin is irregular with mass-like extra cervical soft tissue in the left adnexa. The cervix overall appears enlarged in the endocervical canal appears compressed to the posterior right. There is abnormal tethering of soft tissue planes in the proximal cervical region (series 7 image 36). The left ovary demonstrates a multicystic morphology. There is a large cyst associated with the right ovary (5.5 cm. The uterus demonstrates globular fundal contour and irregular parenchymal density. Partially filled urinary bladder demonstrates a smooth wall without intraluminal mass. Large left pelvic sidewall lymph node measuring 2.2 cm. Smaller right sided pelvic lymph nodes are present. No free fluid. No suspicious osseous lesions visible. IMPRESSION: 1. Abnormal soft tissue mass in the low left pelvis causing left ureteral stricture with associated enlargement of the cervix. Findings are concerning for cervical neoplasm. 2. The urinary bladder and the visible distal ureter appear grossly normal and hydronephrosis is less likely urologic related. 3. Bilateral pelvic adenopathy and bulky left retroperitoneal adenopathy to the level of the left renal vein. 4. Tiny ill-defined hypodensity in the right lobe of the liver too small to accurately characterize by imaging. Continued attention to this area is recommended. 5. Obstruction of the left distal ureter is causing severe left hydroureteronephrosis and decreased left renal function. 6. Discussed with Dr. Del Valle. All CT scans at this facility use dose modulation, iterative reconstruction, and/or weight-based dosing when appropriate to reduce radiation dose to as low as reasonably achievable.
== END 2016-08-20 23:00 ==
LOC: CT SRH 14:10
DX: N13.30 Unspecified hydronephrosis (principal); N13.1 Hydronephrosis with ureteral stricture, not elsewhere classified; R19.00 Intra-abdominal and pelvic swelling, mass and lump, unspecified site; R59.9 Enlarged lymph nodes, unspecified

== ENCOUNTER → 2016-08-22 | Outpatient (CLI) | payer BC | LOC: LAB SRH 14:56 | DX: R10.9 Unspecified abdominal pain (principal) | CPT/HCPCS: 90074; 90100; 92031; 92235; 92530; 93004; 95059 ==